=== PATIENT | female | born 1990 | race Caucasian/White ===

== ENCOUNTER → 2020-06-30 | Outpatient (CLI) | payer OTHER ==
[2020-06-30 13:06] LABS: BUN/CREATININE RATIO 11 (0-10)
== END ==
LOC: LAB 11:56
PROVIDERS: Internal Medicine
DX: M79.7 Fibromyalgia (principal); E88.09 Other disorders of plasma-protein metabolism, not elsewhere classified; R53.83 Other fatigue; D89.89 Other specified disorders involving the immune mechanism, not elsewhere classified; R76.8 Other specified abnormal immunological findings in serum; M25.50 Pain in unspecified joint; Z72.820 Sleep deprivation
CPT/HCPCS: 36415; 80053; 82728; 84439; 84443; 85652; 86140